=== PATIENT | male | born 1935 | race Two or more races ===

== ENCOUNTER 2017-02-02 11:11 | Emergency (ER) | payer MEDICARE, OTHER ==
[~2017-02-02] VITALS: Ht 167.6 cm; Wt 70.0 kg
[2017-02-02 11:23] VITALS: Ht 167.6 cm; Wt 70.0 kg
[2017-02-02] MEDS ORDERED: ACETAMINOPHEN 325 MG TAB PO STA (11:27)
[2017-02-02] MEDS ORDERED: CEFEPIME 2GM/50 ML (PMX) 50 ML IVPB STA (11:27)
[2017-02-02] MEDS ORDERED: VANCOMYCIN 1 GM (PMX) 250 ML IVPB ONE (11:30)
[2017-02-02] MEDS ORDERED: SODIUM CHLORIDE 0.9% 1L BAG IV* STA (11:31)
[2017-02-02] MEDS ORDERED: LISI10TA2 PO (12:02)
[2017-02-02] MEDS ORDERED: MTF1000T PO (12:02)
[2017-02-02] MEDS ORDERED: LEVO50TA74 PO (12:02)
[2017-02-02] MEDS ORDERED: PRAV40TA76 PO (12:03)
[2017-02-02 12:17] LABS: ABNORMAL IP MESSAGE 1; BASOPHILS % 0.1 % (0.0-2.0); HEMATOCRIT 38.2 % (42.0-52.0); LYMPHOCYTES # 0.2 10^3/ul (0.8-2.9); LYMPHOCYTES % 2.7 % (15.0-51.0); MEAN CORPUSCULAR HEMOGLOBIN 29.7 pg (29.0-33.0); MEAN CORPUSCULAR VOLUME 87.4 fl (82.0-101.0); MEAN PLATELET VOLUME 10.2 fl (7.4-10.4); MONOCYTE # 0.4 10^3/ul (0.3-0.9); MONOCYTES % 4.3 % (0.0-11.0); NEUTROPHIL # 8.3 10^3/ul (1.6-7.5); PLATELET COUNT 145 10^3/UL (140-415); POSITIVE DIFF @See below; RED BLOOD COUNT 4.37 10^6/ul (4.70-6.10)
[2017-02-02 12:27] LABS: ALBUMIN 4.1 g/dl (3.3-4.9); ALBUMIN/GLOBULIN RATIO 1.1; BILIRUBIN,INDIRECT 1.1 mg/dl (0-1.1); BILIRUBIN,TOTAL 1.1 mg/dl (0.2-1.3); CALCIUM 9.4 mg/dl (8.4-10.2); CREATININE 1.07 mg/dl (0.61-1.24); POTASSIUM 3.7 mmol/L (3.5-5.1); TOTAL PROTEIN 7.8 g/dl (6.1-8.1)
--- NOTE | 2017-02-02 12:28 | RADRPT ---
PROCEDURE: CT Brain without contrast. CLINICAL INDICATION: Fall, pain. TECHNIQUE: A CT of the brain was performed on multidetector high-resolution CT scanner utilizing a xial sections from the skull base through the vertex without contrast. The scan was reviewed in sof t tissue brain and high frequency resolution bone algorithm windows. Images were reviewed on a high -resolution PACS workstation. One or more the following does reduction techniques were utilized: Aut omated exposure control, adjustment of the mA/ or kV according to patient's size, or use of iterativ e reconstruction technique. The exam CTDI = 44.50 mGy and the DLP = 720.23 mGy-cm. COMPARISON: None available. FINDINGS: The ventricles and sulci are moderately prominent indicative of volume loss. There is no intracrani al hemorrhage, mass effect or midline shift. No abnormal intra-axial or extra-axial fluid collectio ns are seen. The penaloza/white matter differentiation is preserved. There are moderate scattered foci of hypoattenuation in the white matter, which are nonspecific in e tiology but likely reflect chronic small vessel ischemic changes. There is area of focal hypoattenua tion in the posterior aspect of the superior sagittal sinus measuring up to 1.1 cm. Small lacunar in farcts are noted in bilateral lentiform nuclei and left rose radiata. There are moderate intracran ial vascular calcifications consistent with atherosclerosis. The visualized paranasal sinuses are es sentially clear. IMPRESSION: 1. No acute intracranial hemorrhage or transcortical infarction. 2. Focal hypoattenuation in the posterior aspect of the superior sagittal sinus. CT venogram can be obtained to exclude thrombus. 3. Small lacunar infarcts in bilateral lentiform nuclei and left rose radiata. 4. Moderate intracranial atherosclerosis and chronic small vessel ischemic changes. 5. Moderate generalized cerebral and mild cerebellar volume loss. RPTAT: JJ .Muriel Bocanegra MD, MD Date Time Electronically viewed and signed by .Muriel Bocanegra MD, MD on 02/02/2017 12:24 .N/
--- NOTE | 2017-02-02 12:34 | RADRPT ---
PROCEDURE: CT cervical spine without contrast CLINICAL INDICATION: Trauma. Neck pain. TECHNIQUE: CT scan of the cervical spine was [facility] No IV contrast was administered. Coronal and sagittal reformatted images were obtained from th e axial source images. Images were reviewed on a high-resolution PACS workstation. One or more the f ollowing does reduction techniques were utilized: Automated exposure control, adjustment of the mA/ or kV according to patient's size, or use of iterative reconstruction technique. Exam CTDI = 22.07 m Gy and the DLP = 406.62 mGy-cm. COMPARISON: None available. FINDINGS: There is reversal of normal cervical lordosis centered at C4-C5. There is 2 mm anterolisthesis at C 2-C3 and C6-C7. No acute fracture or dislocation is seen. The vertebral body heights are preserve d. No mass, hematoma, or other soft tissue abnormality is seen. There are multilevel moderate to marked degenerative changes of the cervical spine, manifested by os teophytosis and disc height narrowing, most prominent at C3-C4 and C5-C6. Fusion of right C3-C4 face ts is noted. Uncovertebral and facet arthrosis result in multilevel foraminal stenosis: At C3-C4 sev ere on the right and moderate on the left, at C4-C5 moderate to severe on the left, at C5-C6 severe on the right and moderate to severe on the left, and at C6-C7 mild on the right. Posterior disc oste ophyte complexes along with calcification of ligamentum flavum contributes to mild to moderate spina l canal stenosis at C4-C5 and mild spinal canal narrowing at C3-C4 and C5-C6. IMPRESSION: 1. Reversal of normal cervical lordosis centered at C4-C5. There is 2 mm anterolisthesis at C2-C3 and C6-C7. 2. No acute cervical spine fracture. 3. Multilevel moderate to marked degenerative changes of the cervical spine, most prominent at C3-C 4 and C5-C6. 4. Posterior disc osteophyte complexes along with calcification of ligamentum flavum contributes to mild to moderate spinal canal stenosis at C4-C5 and mild spinal canal narrowing at C3-C4 and C5-C6. 5. Multilevel foraminal stenosis as outlined in details in findings. RPTAT: JJ .Muriel Bocanegra MD, MD Date Time Electronically viewed and signed by .Muriel Bocanegra MD, MD on 02/02/2017 12:33 .N/
[2017-02-02 12:38] LABS: TROPONIN-I 0.081 ng/ml (0.00-0.12)
[2017-02-02 12:43] LABS: INR 1.22; PARTIAL THROMBOPLASTIN TIME 39.4 Sec (25.0-35.0); PROTIME 15.5 Sec (12.2-14.2); PT RATIO 1.2
--- NOTE | 2017-02-02 12:51 | RADRPT ---
PROCEDURE: CT ABDOMEN AND PELVIS WITHOUT CONTRAST. CLINICAL INDICATION: Abdominal pain status post fall TECHNIQUE: CT scan of the abdomen and pelvis without contrast was performed on a multidetector hig h-resolution CT scanner. The patient was scanned without intravenous contrast. Coronal and sagittal reformatted images were obtained from the axial source images. Images were reviewed on a high-resol [employer] PACS workstation. The total exam CTDI equals 4.7 mGy and the total exam DLP equals 775.3 mGy-c m. One or more of the following dose reduction techniques were used: Automated exposure control. Adjustment of the mA and/or kV according to patient size. Use of iterative reconstruction technique. COMPARISON: None FINDINGS: CT abdomen: Lung bases are clear. Heart size is enlarged. There is no significant pericardial effusion. There is no evidence of acute fractures of the visualized bilateral lower ribs. Nodular appearance of the borders of the liver is identified. There is an area of exophytic prominen ce within the left lobe liver, containing a small hypodensity, seen on image number 32. Gallbladder appears to within normal limits. No evidence of intrahepatic or extrahepatic biliary dilatation. The spleen is enlarged. The pancreas appears to be within normal limits. Both adrenal glands are within normal limits. Both kidneys are and normal anatomic position. There is nonspecific bilateral perinephric fat strand ing. No obstruction or hydronephrosis. The visualized GI tract demonstrates normal caliber loops of small and large bowel. No evidence of b owel obstruction. The appendix is within normal limits. Stool and air filled large bowel suggestive of constipation. There is atherosclerotic calcification of the aorta. No significant retroperitoneal lymphadenopathy. No gross periaortic fluid. CT pelvis: The bladder is distended. There are bilateral inguinal hernias, right greater than left, containing the terminal ileum within the right inguinal hernia and the left anterior bladder within the left in guinal hernia. The prostate gland is enlarged. The rectosigmoid colon demonstrate diverticulosis. No significant free fluid. No significant pelvic lymphadenopathy. The visualized osseous structures demonstrate no evidence of acute fractures of the visualized lumbo sacral spine. There is multilevel degenerative disease and grade 1 anterolisthesis of L4-L5 and grad e 1 retrolisthesis of L5-S1. No evidence of acute fractures of the hips and pelvis. IMPRESSION: 1. No evidence of free fluid or free air. No gross focal fluid collections. 2. No definitive solid organ injury, although examination is limited without IV contrast. 3. No evidence of acute fractures of the visualized bilateral lower ribs and lumbosacral spine and b curtis pelvis. 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 4. Liver cirrhosis and splenomegaly. There is an area of exophytic prominence within the left lobe o f the liver, containing a small hypodensity. Recommend follow-up CT scan with IV contrast following a multi phase liver protocol. 5. Bilateral inguinal hernias, right greater left. The right inguinal hernia, containing the termina l ileum and the left inguinal hernia contains the left anterior bladder. No evidence of strangulatio n at this time. 6. Atherosclerotic disease of the aorta. 7. No evidence of bowel obstruction. The appendix is within normal limits. RPTAT: AAPP Physician Neal Date Time Electronically viewed and signed by Physician Neal on 02/02/2017 12:51 CHUYITA/
--- NOTE | 2017-02-02 12:59 | RADRPT ---
PROCEDURE: XR Chest. CLINICAL INDICATION: Infection, possible sepsis. TECHNIQUE: AP Portable chest. COMPARISON: Chest x-ray 09/10/2007 FINDINGS: There is now evidence of mild cardiomegaly. Atherosclerotic calcifications of the thoracic aorta are identified. There is mild bibasilar atelectasis. No pleural effusion or consolidation is seen. Deg enerative changes of the thoracic spine are evident. There are also prominent degenerative changes o f the shoulders, right more so than left. These have worsened somewhat when compared to the prior st y. IMPRESSION: 1. Mild cardiomegaly. 2. Bibasilar atelectasis. 3. Atherosclerotic calcifications of the thoracic aorta. RPTAT: PP .Lucy Hogan MD, MD Date Time Electronically viewed and signed by .Lucy Hogan MD, on 02/02/2017 12:58 .H/
[2017-02-02 13:09] LABS: URINE BLOOD (Dip) POC 3+ (NEGATIVE)
--- NOTE | 2017-02-02 13:45 | ERA ---
ER Documentation Chief Complaint Date/Time DATE: 02/02/17 TIME: 13:41 Chief Complaint BIB RA FOR EVAL OF FALL HPI Patient is an 81-year-old male with diabetes who presents with a fall. Please note the history and physical exam is limited secondary to the patient's confusion. The patient was brought in by ambulance. He had a fall 3 days ago and has been on the floor since last night per the paramedics. He was unable to get up. He was confused and incontinent of urine. He smells of urine. It is difficult to obtain history otherwise. Upon review of old medical records the patient one previous visit to the ER in 2007. He does not currently have a primary doctor. ROS All systems reviewed and are negative except as per history of present illness. Medications Home Meds Reported Medications Pravastatin Sodium* (Pravastatin Sodium*) 40 Mg Tablet, 40 MG PO HS, TAB 02/02/17 Levothyroxine Sodium* (Levothyroxine Sodium*) 50 Mcg Tablet, 50 MCG PO BEFORE BREAKFAST, #30 TAB 02/02/17 Lisinopril* (Lisinopril*) 10 Mg Tablet, 10 MG PO DAILY, #30 TAB 02/02/17 Metformin* (Glucophage*) 1,000 Mg Tablet, 1000 MG PO BID, #60 TAB 02/02/17 Allergies Allergies: Coded Allergies: No Known Allergy (Unverified , 02/02/17) PMhx/Soc Hx Cardiac Disorders: Yes (HTN) Hx Miscellaneous Medical Probl: Yes (DM) Hx Alcohol Use: No Hx Substance Use: No Hx Tobacco Use: No Smoking Status: Never smoker FmHx Family History: diabetes Physical Exam Vitals Vital Signs Date Time Temp Pulse Resp B/P Pulse Ox O2 Delivery O2 Flow Rate FiO2 02/02/17 12:31 101.0 97 20 125/64 100 Room Air 02/02/17 11:29 Nasal Cannula 2 02/02/17 11:23 101.7 104 16 134/55 97 Physical Exam Const: Smells of urine Head: Atraumatic Eyes: Normal Conjunctiva ENT: Normal External Ears, Nose and Mouth. Neck: Full range of motion..~ No meningismus. Resp: Clear to auscultation bilaterally Cardio: Regular rate and rhythm, no murmurs Abd: Soft, non tender, non distended. Normal bowel sounds Skin: Skin breakdown from the right chest and right abdomen from prolonged exposure to laying on the floor Back: No midline or flank tenderness Ext: No cyanosis, or edema Neur: Awake but confused Result Diagram: 02/02/17 1150 02/02/17 1150 Results 24 hrs Laboratory Tests Test 02/02/17 11:50 02/02/17 13:17 White Blood Count 9.010^3/ul Red Blood Count 4.3710^6/ul Hemoglobin 13.0g/dl Hematocrit 38.2% Mean Corpuscular Volume 87.4fl Mean Corpuscular Hemoglobin 29.7pg Mean Corpuscular Hemoglobin Concent 34.0g/dl Red Cell Distribution Width 13.0% Platelet Count 14278^3/UL Mean Platelet Volume 10.2fl Neutrophils % 92.0% Lymphocytes % 2.7% Monocytes % 4.3% Eosinophils % 0.0% Basophils % 0.1% Nucleated Red Blood Cells % 0.0/100WBC Neutrophils # 8.310^3/ul Lymphocytes # 0.210^3/ul Monocytes # 0.410^3/ul Eosinophils # 0.010^3/ul Basophils # 0.010^3/ul Nucleated Red Blood Cells # 0.010^3/ul Prothrombin Time 15.5Sec Prothrombin Time Ratio 1.2 INR International Normalized Ratio 1.22 Activated Partial Thromboplast Time 39.4Sec Sodium Level 133mmol/L Potassium Level 3.7mmol/L Chloride Level 101mmol/L Carbon Dioxide Level 23mmol/L Anion Gap 13 Blood Urea Nitrogen 28mg/dl Creatinine 1.07mg/dl Glucose Level 203mg/dl Lactic Acid Level 2.3mmol/L Calcium Level 9.4mg/dl Total Bilirubin 1.1mg/dl Direct Bilirubin 0.00mg/dl Indirect Bilirubin 1.1mg/dl Aspartate Amino Transf (AST/SGOT) 247IU/L Alanine Aminotransferase (ALT/SGPT) 92IU/L Alkaline Phosphatase 108IU/L Creatine Kinase IU/L Creatine Kinase Index Creatinine Kinase MB (Mass) 18.00ng/ml Troponin I 0.081ng/ml Total Protein 7.8g/dl Albumin 4.1g/dl Globulin 3.70g/dl Albumin/Globulin Ratio 1.10 Bedside Urine pH (LAB) 5.5 Bedside Urine Protein (LAB) 3+ Bedside Urine Glucose (UA) 0.1% Bedside Urine Ketones (LAB) 1+ Bedside Urine Blood 3+ Bedside Urine Nitrite (LAB) Negative Bedside Urine Leukocyte Esterase (L Negative Current Medications Medications (Trade) Dose Ordered Sig/Araseli Route PRN Reason Start Time Stop Time Status Last Admin Dose Admin Acetaminophen 650 mg 650 mg ONCE STAT PO 02/02/17 11:27 02/02/17 11:28 DC 02/02/17 11:43 Cefepime HCl 50 ml @ 100 mls/hr ONCE STAT IVPB 02/02/17 11:27 02/02/17 11:56 DC 02/02/17 11:44 Vancomycin HCl (Vancocin) 250 ml @ 125 mls/hr ONCE ONCE IVPB 02/02/17 11:30 02/02/17 13:29 DC 02/02/17 13:03 Sodium Chloride (NS) 2,170 ml BOLUS OVER 2 HOURS STAT IV* 02/02/17 11:31 02/02/17 11:32 DC 02/02/17 11:45 Procedures/MDM EKG read by me: Rate/Rhythm: Right bundle branch block at a rate of 100 Intervals: Normal Impression: Right bundle branch block Chest x-ray shows mild cardiomegaly per radiology. CT scan of the head, cervical spine, abdomen, and pelvis shows no sign of traumatic injury per radiology. Admit MDM: Patient's infectious symptoms have not stabilized and the patient is at risk of rapid decompensation. The patient will be admitted for careful hydration, antibiotic therapy, and infectious source control. Severe Sepsis criteria: Infectious source: Unclear source at this time End organ damage indicated by: Lactate greater than 2 Sepsis Management: Time of recognition of sepsis: Upon arrival Within 3 hours of recognition: Blood cultures x 2 before broad-spectrum antibiotics: Yes 30 ml/kg NS bolus Completed Initial lactate 2.3 Repeat lactate pending Time of recognition of septic shock: No septic shock Septic Shock Assessment: Any lactic acid > 4.0 No Persistent hypotension (SBP < 90 or 40 mmHg drop, MAP < 65) despite 30 mL/kg IV fluid bolus No Volume Re-assessment for Septic Shock (post 30 ml/kg bolus): No septic shock at this time Persistent Hypotension Treatment: Comfort care No Central line Not Required Vasopressor started Not required I considered further perfusion assessment with CVP measurement, SCVO2, bedside ultrasound volume assessment, passive leg raise, trial of further fluid bolus. And proceeded with 30 ml/kg fluid bolus of NSS, broad spectrum antibiotics, and admission. The patient was also found to have a CK level but was out of range concerning for rhabdomyolysis. I believe this is likely related to his prolonged exposure to laying on the floor and muscle breakdown. The patient has a normal creatinine at this time but the concern is for possible acute renal failure going forward. The patient was aggressively fluid hydrated with normal saline. Accepting Care Team Current data and ongoing care discussed. Admitting Physician: Dr. Catherine from [facility] as the patient has [employer] insurance office manager(s): None Outstanding Data: Culture results and repeat lactic acid Critical Care: Critical care time 35 minutes excluding all billable procedures Emergent fluid management while maintaining close respiratory support. Provision of immediate and broad-spectrum antibiotic therapy. Simultaneous assessment for possible sources in order to direct targeted therapy. Consideration for invasive and chemical support to prevent cardiopulmonary collapse. Departure Diagnosis: Primary Impression: Rhabdomyolysis Qualified Code: M62.82 - Non-traumatic rhabdomyolysis Additional Impressions: Fall Qualified Code: W19.XXXA - Fall, initial encounter Severe sepsis Condition: Serious ZAINA BYNUM MD Feb 02, 2017 13:45
[2017-02-02 13:59] LABS: ADD UMIC YES; UR AMORPHOUS CRYSTAL MODERATE /HPF (NONE SEEN); UR ASCORBIC ACID NEGATIVE (NEGATIVE); UR BACTERIA FEW /HPF (NONE SEEN); UR BILIRUBIN (Dip) NEGATIVE (NEGATIVE); UR BLOOD (Dip) 3+ mg/dL (NEGATIVE); UR CLARITY CLEAR (CLEAR); UR COLOR AMBER (YELLOW); UR GLUCOSE (Dip) 1+ mg/dL (NEGATIVE); UR KETONES (Dip) TRACE mg/dL (NEGATIVE); UR LEUKOCYTE ESTERASE (Dip) NEGATIVE Leu/ul (NEGATIVE); UR NITRITE (Dip) NEGATIVE (NEGATIVE); UR RBC 2 /HPF (0-5); UR SPECIFIC GRAVITY (Dip) 1.022 (1.003-1.030); UR TOTAL PROTEIN (Dip) 3+ mg/dl (NEGATIVE); UR UROBILINOGEN (Dip) 2+ mg/dL (NEGATIVE)
[2017-02-02 15:52] VITALS: BP 134/59; PULSE 86; RESP 20; TEMP 98.1
== END 2017-02-02 16:19 | disposition short-term general hospital (02) ==
LOC: E/R 11:11
DX: M62.82 Rhabdomyolysis (principal); R65.20 Severe sepsis without septic shock; A41.9 Sepsis, unspecified organism; I10 Essential (primary) hypertension; E11.9 Type 2 diabetes mellitus without complications; Z79.84 Long term (current) use of oral hypoglycemic drugs
CPT/HCPCS: 36415; 70450; 71010; 72125; 74176; 80053; 81001; 82550; 82553; 83605; 84484; 85025; 85610; 85730; 87040; 87086; 96374; 96375; 99291; J0692; J3370; J7030; 81003

== ENCOUNTER 2017-08-19 23:57 | Inpatient (IN) | END 2017-08-21 20:30 | disposition short-term general hospital (02) | DRG 64 ==